=== PATIENT | female | born 1960 ===

== ENCOUNTER 2021-04-19 19:23 | Inpatient (IN) | payer MEDICAID ==
[~2021-04-19] VITALS: Ht 157.5 cm; Wt 99.8 kg
[~2021-04-19 19:23] MED LIST: ASPI-496 PO; CEPH-368 PO; CYCL10TA2 PO; DOCU100T6 PO; GABA300C10 PO; HYDR-2214 PO; HYDR-3237 PO; HYDR25TA6 PO; IBUP-1222 PO; LOSA50TA14 PO; METH-639 PO; METH-640 PO; METH4TAB2 PO; MULT-658 PO; NITR100C56 PO; TRAM50TA2 PO
--- NOTE | 2021-04-19 19:32 | NUR ---
Pt required assistance x 4 to move to [place] [facility], was not ambulatory on scene 2nd to pain. Had epidural 2 days ago, says "its not working" hx chronic back pain has pain mgmt Says she has not contacted her dr for f/u. No new injury. Pt is very sleepy, medics gave her fentenyl states she was sleepy prior to fentenyl but in 10/10 pain. aidet provided.
--- NOTE | 2021-04-19 19:47 | NUR ---
Brittany PINEDA at bedside for evaluation.
[2021-04-19] MEDS ORDERED: SODIUM CHLORIDE 0.9% 1,000 ML IV ONE (20:00)
[2021-04-19] MEDS ORDERED: SODIUM CHLORIDE FLUSH 10ML SYR IVF ONE (20:00)
--- NOTE | 2021-04-19 20:16 | NUR ---
IV started bc x1 set drawn and sent, IVF infusing. Straight cath via sterile technique sent, urine odorous, dark, cloudy. Sent to lab. Labs sourav 2nd set BC. EKG done. will continue monitor.
[2021-04-19 20:22] LABS: BASOPHILS % (AUTO) 1 % (0-1); EOSINOPHILS % (AUTO) 2 % (1-7); LYMPHOCYTES % (AUTO) 17 % (22-44); MEAN CORPUSCULAR HEMOGLOBIN 30.2 pg (27.0-34.8); MEAN CORPUSCULAR HGB CONC 32.8 g/dL (32.4-35.8); MONOCYTES % (AUTO) 7 % (2-9); NEUTROPHILS % (AUTO) 73 % (42-75); PLATELET COUNT 79 x10^3/uL (130-400); RED BLOOD COUNT 4.16 x10^6/uL (3.82-5.3); RED CELL DISTRIBUTION WIDTH 19.3 % (9.6-15.2)
--- NOTE | 2021-04-19 20:25 | NUR ---
B/p trending 92/S, IVF going wide open pt remains very lethargic says she hasn't taken any medications today. Consult with ERP for further orders, agree with poc.
[2021-04-19 20:32] LABS: ALANINE AMINOTRANSFERASE 118 U/L (12-78); ANION GAP 7 mmol/L (5-15); CALCIUM 8.1 mg/dL (8.5-10.1); CHLORIDE 118 mmol/L (98-107); CREATININE 2.59 mg/dL (0.55-1.02)
[2021-04-19 20:34] LABS: MICROSCOPIC INDICATED
[2021-04-19 20:35] LABS: ALKALINE PHOSPHATASE 234 U/L (45-117); BILIRUBIN,TOTAL 4.2 mg/dL (0.2-1.0); TOTAL PROTEIN 5.7 g/dL (6.4-8.2)
[2021-04-19 20:39] LABS: AMPHETAMINE SCREEN, URINE Negative (Negative); BARBITURATE SCREEN, URINE Negative (Negative); BENZODIAZEPINE SCREEN, URINE Negative (Negative); CANNABINOID SCREEN, URINE Negative (Negative); COCAINE SCREEN, URINE Negative (Negative); METHADONE SCREEN, URINE Negative (Negative); OPIATE SCREEN, URINE Positive (Negative)
--- NOTE | 2021-04-19 20:47 | NUR ---
1st Liter going wide open, ifnormed ERP of b/p trend. Pt remains sleepy mentation. Requested lactate/procalcitonin order.
[2021-04-19] MEDS ORDERED: CEFTRIAXONE 1,000 MG in DEXTROSE 5% 50 ML IVPB ONE (21:00)
[2021-04-19] MEDS ORDERED: SODIUM CHLORIDE 0.9% 1,000ML IVBOLUS ONE ×2 (21:00)
--- NOTE | 2021-04-19 21:03 | NUR ---
IVF #2 INFUSING, ABX STARTED. BC HAVE ALREADY BEEN DRAWN. MAP 64
[2021-04-19] MEDS ORDERED: ONDANSETRON 2MG/ML, 2ML ONE (21:11)
--- NOTE | 2021-04-19 21:54 | NUR ---
Waiting for tele admit.
[2021-04-19] MEDS ORDERED: ONDANSETRON 2MG/ML, 2ML IVPush PRN ×2 (22:00→23:00)
[2021-04-19] MEDS ORDERED: METO50TA82 PO (22:01)
[2021-04-19] MEDS ORDERED: RIFA550T4 PO (22:01)
--- NOTE | 2021-04-19 22:13 | NUR ---
ER meds: 2L NS bolus and 1gm rocephin. [facility] lock for transport, with belongings. VSS. Report to tele
--- NOTE | 2021-04-19 22:17 | NUR ---
Hospitalist at bedside, meds updated in computer. Pt says hasn't had any of her meds since wednesday.
[2021-04-19] MEDS ORDERED: HYDR-826 PO (22:24)
[2021-04-19] MEDS ORDERED: GABA300C PO (22:24)
[2021-04-19] MEDS ORDERED: ATOR20TA37 PO (22:24)
[2021-04-19] MEDS ORDERED: DIPH25CA61 PO (22:24)
[2021-04-19] MEDS ORDERED: OMEP-110 PO (22:24)
--- NOTE | 2021-04-19 22:31 | NUR ---
Dr Garcia saw pt in ER. Pt packaged ready to go upstairs. Pt appears more alert now than previously in ER.
[2021-04-19 22:45] VITALS: BP 101/61
[2021-04-19] MEDS ORDERED: CEFTRIAXONE 1,000 MG in DEXTROSE 5% 50 ML IVPB SCH (23:00)
[2021-04-19] MEDS ORDERED: DOCUSATE 100 MG CAPSULE PO PRN (23:00)
[2021-04-20] MEDS: HEPARIN 5,000 UNITS/ML, 1ML SQ SCH ×4 (00:04→23:37)
[2021-04-20 01:40] VITALS: BP 94/57
[2021-04-20] MEDS: HYDROcodone/APAP 5/325 TABLET PO PRN ×2 (03:37→23:38)
[2021-04-20 05:26] LABS: BASOPHILS % (AUTO) 1 % (0-1); EOSINOPHILS % (AUTO) 3 % (1-7); LYMPHOCYTES % (AUTO) 24 % (22-44); MEAN CORPUSCULAR HEMOGLOBIN 30.5 pg (27.0-34.8); MEAN CORPUSCULAR HGB CONC 32.7 g/dL (32.4-35.8); MEAN PLATELET VOLUME 11.4 fL (7.4-10.4); MONOCYTES % (AUTO) 10 % (2-9); NEUTROPHILS % (AUTO) 62 % (42-75); PLATELET COUNT 73 x10^3/uL (130-400); RED BLOOD COUNT 4.15 x10^6/uL (3.82-5.3); RED CELL DISTRIBUTION WIDTH 20.2 % (9.6-15.2)
[2021-04-20 05:36] LABS: CHLORIDE 119 mmol/L (98-107)
[2021-04-20 05:47] LABS: ALANINE AMINOTRANSFERASE 120 U/L (12-78); ALBUMIN 1.9 g/dL (3.4-5.0); ALKALINE PHOSPHATASE 228 U/L (45-117); ANION GAP 8 mmol/L (5-15); BILIRUBIN,TOTAL 4.2 mg/dL (0.2-1.0); CALCIUM 7.7 mg/dL (8.5-10.1); CREATININE 2.88 mg/dL (0.55-1.02); TOTAL PROTEIN 5.4 g/dL (6.4-8.2)
[2021-04-20 07:43] VITALS: BP 106/66
[2021-04-20] MEDS: RIFAXIMIN 550 MG TABLET PO SCH (08:31)
[2021-04-20] MEDS: METOPROLOL TARTRATE 100 MG TAB PO SCH (08:31)
[2021-04-20] MEDS: FUROSEMIDE 20 MG/2 ML IV SCH ×2 (08:32→15:53)
[2021-04-20] MEDS: OMEPRAZOLE 20 MG CAPSULE.DR PO SCH (08:32)
[2021-04-20] MEDS: LOSARTAN 50MG TABLET PO SCH (08:32)
[2021-04-20] MEDS: CYCLOBENZAPRINE 10 MG TABLET PO SCH ×3 (08:32→21:58)
[2021-04-20 13:21] VITALS: BP 113/72
[2021-04-20] MEDS: SODIUM CHLORIDE 0.9% 1,000 ML IV SCH (15:53)
[2021-04-20 19:19] VITALS: BP 118/78
[2021-04-20] MEDS: CEFTRIAXONE 2,000 MG in DEXTROSE 5% 50 ML IVPB SCH (21:58)
[2021-04-20] MEDS: LACTULOSE 10 GM/15 ML UDC PO SCH (21:58)
[2021-04-21] MEDS: SODIUM CHLORIDE 0.9% 1,000 ML IV SCH ×2 (01:03→10:45)
[2021-04-21] MEDS: HYDROcodone/APAP 5/325 TABLET PO PRN (01:04)
[2021-04-21 01:27] VITALS: BP 124/86
[2021-04-21 07:38] VITALS: BP 102/64
[2021-04-21] MEDS: FUROSEMIDE 20 MG/2 ML IV SCH ×2 (08:12→17:01)
[2021-04-21] MEDS: METOPROLOL TARTRATE 100 MG TAB PO SCH (08:12)
[2021-04-21] MEDS: HEPARIN 5,000 UNITS/ML, 1ML SQ SCH ×3 (08:12→23:56)
[2021-04-21] MEDS: LACTULOSE 10 GM/15 ML UDC PO SCH ×2 (08:12→21:01)
[2021-04-21] MEDS: RIFAXIMIN 550 MG TABLET PO SCH (08:12)
[2021-04-21] MEDS: LOSARTAN 50MG TABLET PO SCH (08:13)
[2021-04-21] MEDS: CYCLOBENZAPRINE 10 MG TABLET PO SCH ×3 (08:13→21:01)
[2021-04-21] MEDS: OMEPRAZOLE 20 MG CAPSULE.DR PO SCH (08:13)
[2021-04-21] MEDS ORDERED: MORPHINE SULFATE 4 MG/ML, 1ML IV ONE (08:30)
[2021-04-21 08:31] LABS: BASOPHILS % (AUTO) 1 % (0-1); EOSINOPHILS % (AUTO) 2 % (1-7); LYMPHOCYTES % (AUTO) 25 % (22-44); MEAN CORPUSCULAR HEMOGLOBIN 30.5 pg (27.0-34.8); MEAN CORPUSCULAR HGB CONC 33.1 g/dL (32.4-35.8); MEAN PLATELET VOLUME 10.6 fL (7.4-10.4); MONOCYTES % (AUTO) 12 % (2-9); NEUTROPHILS % (AUTO) 61 % (42-75); PLATELET COUNT 66 x10^3/uL (130-400); RED BLOOD COUNT 3.88 x10^6/uL (3.82-5.3); RED CELL DISTRIBUTION WIDTH 20.3 % (9.6-15.2)
[2021-04-21 08:36] LABS: CALCIUM 7.4 mg/dL (8.5-10.1); CHLORIDE 118 mmol/L (98-107)
[2021-04-21 08:41] LABS: ALANINE AMINOTRANSFERASE 138 U/L (12-78); ALBUMIN 1.8 g/dL (3.4-5.0); ALKALINE PHOSPHATASE 233 U/L (45-117); ANION GAP 9 mmol/L (5-15); BILIRUBIN,TOTAL 4.9 mg/dL (0.2-1.0); CREATININE 4.19 mg/dL (0.55-1.02); TOTAL PROTEIN 5.5 g/dL (6.4-8.2)
[2021-04-21] MEDS ORDERED: SODIUM CHLORIDE 0.9%, 500ML IVBOLUS ONE (11:30)
[2021-04-21 13:00] VITALS: BP 120/74
[2021-04-21 14:31] VITALS: BP 105/56
[2021-04-21] MEDS: ALBUMIN HUMAN 25% 200 ML IV SCH (14:54)
[2021-04-21] MEDS ORDERED: MORPHINE SULFATE 4 MG/ML, 1ML IVPush ONE (15:00)
[2021-04-21 16:11] LABS: TROPONIN I 0.109 ng/mL (0.000-0.045)
[2021-04-21 20:06] VITALS: BP 102/59
[2021-04-21] MEDS: CEFTRIAXONE 2,000 MG in DEXTROSE 5% 50 ML IVPB SCH (22:22)
[2021-04-22 00:17] LABS: TROPONIN I 0.106 ng/mL (0.000-0.045)
[2021-04-22 02:13] VITALS: BP 110/64
[2021-04-22] MEDS: ALBUMIN HUMAN 25% 200 ML IV SCH ×2 (02:18→14:13)
[2021-04-22] MEDS: SODIUM CHLORIDE 0.9% 1,000 ML IV SCH (02:18)
[2021-04-22 05:34] LABS: TROPONIN I 0.084 ng/mL (0.000-0.045)
[2021-04-22 07:03] VITALS: BP 121/79
[2021-04-22 07:33] LABS: BASOPHILS % (AUTO) 1 % (0-1); EOSINOPHILS % (AUTO) 2 % (1-7); LYMPHOCYTES % (AUTO) 13 % (22-44); MEAN CORPUSCULAR HEMOGLOBIN 30.8 pg (27.0-34.8); MEAN CORPUSCULAR HGB CONC 33.3 g/dL (32.4-35.8); MEAN PLATELET VOLUME 11.3 fL (7.4-10.4); MONOCYTES % (AUTO) 12 % (2-9); NEUTROPHILS % (AUTO) 73 % (42-75); RED BLOOD COUNT 3.33 x10^6/uL (3.82-5.3); RED CELL DISTRIBUTION WIDTH 20.2 % (9.6-15.2)
[2021-04-22 07:37] LABS: ALANINE AMINOTRANSFERASE 140 U/L (12-78); ALBUMIN 2.7 g/dL (3.4-5.0); ANION GAP 11 mmol/L (5-15); CALCIUM 6.8 mg/dL (8.5-10.1); CHLORIDE 120 mmol/L (98-107)
[2021-04-22 07:39] LABS: CREATININE 4.14 mg/dL (0.55-1.02)
[2021-04-22 07:40] LABS: ALKALINE PHOSPHATASE 192 U/L (45-117); BILIRUBIN,TOTAL 5.3 mg/dL (0.2-1.0); TOTAL PROTEIN 5.8 g/dL (6.4-8.2)
[2021-04-22 08:06] LABS: PLATELET COUNT 56 x10^3/uL (130-400)
[2021-04-22 08:09] LABS: ANISOCYTOSIS 2+; ECHINOCYTES 1+; OVALOCYTES 1+
[2021-04-22 08:10] LABS: <PLATELET ESTIMATE> DECREASED; LARGE PLATELETS 1+
[2021-04-22 08:12] VITALS: BP 106/70
[2021-04-22] MEDS: RIFAXIMIN 550 MG TABLET PO SCH (08:13)
[2021-04-22] MEDS: HEPARIN 5,000 UNITS/ML, 1ML SQ SCH ×3 (08:13→23:49)
[2021-04-22] MEDS: METOPROLOL TARTRATE 100 MG TAB PO SCH (08:13)
[2021-04-22] MEDS: OMEPRAZOLE 20 MG CAPSULE.DR PO SCH (08:13)
[2021-04-22] MEDS: CYCLOBENZAPRINE 10 MG TABLET PO SCH ×3 (08:13→20:27)
[2021-04-22] MEDS: FUROSEMIDE 20 MG/2 ML IV SCH (08:14)
[2021-04-22] MEDS: LACTULOSE 10 GM/15 ML UDC PO SCH ×3 (08:14→20:27)
[2021-04-22 10:30] LABS: INTERNATIONAL NORMALIZED RATIO 1.55 (0.93-1.1); PROTHROMBIN TIME 16.2 Seconds (9.6-11.5)
[2021-04-22] MEDS: SODIUM BICARBONATE 650 MG TABLET PO SCH ×2 (11:49→20:27)
[2021-04-22] MEDS ORDERED: LACTULOSE 20 GM/30 ML UDC PO SCH (13:00)
[2021-04-22 13:15] VITALS: BP 113/62
[2021-04-22] MEDS ORDERED: LACTULOSE 3.3 GM/5 ML ORAL.SOL RC ONE (14:00)
[2021-04-22] MEDS: METRONIDAZOLE PMX 500MG/100ML 100 ML IV SCH ×2 (15:33→22:46)
[2021-04-22 19:02] VITALS: BP 131/80
[2021-04-22] MEDS: CEFTRIAXONE 2,000 MG in DEXTROSE 5% 50 ML IVPB SCH (22:02)
[2021-04-23] MEDS ORDERED: SUCCINYLCHOLINE 20 MG/ML, 10ML ONE
[2021-04-23] MEDS ORDERED: PROPOFOL 10 MG/ML, 100ML IV ONE
[2021-04-23] MEDS ORDERED: ETOMIDATE 40 MG/20 ML ONE
[2021-04-23 00:10] VITALS: BP 116/77
[2021-04-23] MEDS: ALBUMIN HUMAN 25% 200 ML IV SCH (01:42)
[2021-04-23 06:06] LABS: BASOPHILS % (AUTO) 0 % (0-1); EOSINOPHILS % (AUTO) 1 % (1-7); LYMPHOCYTES % (AUTO) 8 % (22-44); MEAN CORPUSCULAR HEMOGLOBIN 30.5 pg (27.0-34.8); MEAN CORPUSCULAR HGB CONC 32.7 g/dL (32.4-35.8); MONOCYTES % (AUTO) 9 % (2-9); NEUTROPHILS % (AUTO) 81 % (42-75); PLATELET COUNT 59 x10^3/uL (130-400); RED BLOOD COUNT 3.87 x10^6/uL (3.82-5.3); RED CELL DISTRIBUTION WIDTH 20.9 % (9.6-15.2)
[2021-04-23 06:10] LABS: ALANINE AMINOTRANSFERASE 228 U/L (12-78); ALBUMIN 3.4 g/dL (3.4-5.0); ANION GAP 14 mmol/L (5-15); CALCIUM 7.4 mg/dL (8.5-10.1); CHLORIDE 118 mmol/L (98-107)
[2021-04-23 06:13] LABS: ALKALINE PHOSPHATASE 210 U/L (45-117); BILIRUBIN,TOTAL 7.2 mg/dL (0.2-1.0); CREATININE 4.31 mg/dL (0.55-1.02); TOTAL PROTEIN 6.7 g/dL (6.4-8.2)
[2021-04-23] MEDS: METRONIDAZOLE PMX 500MG/100ML 100 ML IV SCH (06:18)
[2021-04-23 06:49] VITALS: BP 138/85
[2021-04-23] MEDS: SODIUM BICARBONATE 650 MG TABLET PO SCH ×4 (08:45→21:50)
[2021-04-23] MEDS: CYCLOBENZAPRINE 10 MG TABLET PO SCH (08:45)
[2021-04-23] MEDS: METOPROLOL TARTRATE 100 MG TAB PO SCH (08:45)
[2021-04-23] MEDS: RIFAXIMIN 550 MG TABLET PO SCH (08:45)
[2021-04-23] MEDS: OMEPRAZOLE 20 MG CAPSULE.DR PO SCH (08:45)
[2021-04-23] MEDS: LACTULOSE 10 GM/15 ML UDC PO SCH ×3 (08:46→21:50)
[2021-04-23] MEDS: HEPARIN 5,000 UNITS/ML, 1ML SQ SCH ×3 (08:46→21:52)
[2021-04-23] MEDS: SODIUM BICARBONATE 8.4% 150 MEQ in DEXTROSE 5% 1,000 ML IV SCH ×3 (11:36→21:58)
[2021-04-23] MEDS: ALBUMIN HUMAN 25% 100 ML IV SCH ×3 (11:37→18:13)
[2021-04-23 12:51] VITALS: BP 88/58
[2021-04-23 12:55] VITALS: BP 88/58
[2021-04-23] MEDS ORDERED: ALBUMIN HUMAN 25% 100 ML IV SCH (13:00)
[2021-04-23] MEDS ORDERED: LACTULOSE 3.3 GM/5 ML ORAL.SOL RC ONE (13:00)
[2021-04-23] MEDS ORDERED: OCTREOTIDE 1,250 MCG in SODIUM CHLORIDE 0.9% 247.5 ML IV SCH (13:00)
[2021-04-23] MEDS ORDERED: MIDODRINE 5 MG TABLET PO SCH (13:00)
[2021-04-23 13:03] VITALS: BP 70/42
[2021-04-23] MEDS: NOREPINEPHRINE 8 MG in SODIUM CHLORIDE 0.9% 242 ML IV PRN ×2 (15:22→20:05)
[2021-04-23] MEDS: MIDODRINE 5 MG TABLET PO SCH ×3 (15:23→21:51)
[2021-04-23 15:46] LABS: ALANINE AMINOTRANSFERASE 216 U/L (12-78); ANION GAP 17 mmol/L (5-15); CALCIUM 6.7 mg/dL (8.5-10.1); CHLORIDE 115 mmol/L (98-107); PLATELET (DIC) 68 x10^3/uL (130-400)
[2021-04-23 15:47] LABS: INTERNATIONAL NORMALIZED RATIO 1.81 (0.93-1.1); PROTHROMBIN TIME 18.8 Seconds (9.6-11.5)
[2021-04-23 15:48] LABS: ALKALINE PHOSPHATASE 177 U/L (45-117); BILIRUBIN,TOTAL 6.6 mg/dL (0.2-1.0); TOTAL PROTEIN 6.8 g/dL (6.4-8.2)
[2021-04-23] MEDS ORDERED: PHARMACY MAY ADJ FOR RENAL FX MC SCH (16:00)
[2021-04-23] MEDS ORDERED: LIDOCAINE-MPF 1%, 2ML ENDO PRN (16:00)
[2021-04-23 16:06] LABS: D-DIMER (DIC) 2.18 ug/mlFEU (0.00-0.52); FIBRINOGEN 286 mg/dL (200-340); PROTIME 18.4 Seconds (9.6-11.5)
[2021-04-23] MEDS: MEROPENEM 500 MG in SODIUM CHLORIDE 0.9% 100 ML IV SCH (16:08)
[2021-04-23 16:10] LABS: PTT > 95 Seconds (25-31)
[2021-04-23] MEDS ORDERED: SODIUM BICARB 8.4%, 50ML SYRINGE IVPush ONE (16:30)
[2021-04-23] MEDS ORDERED: LIDOCAINE-MPF 1%, 5ML ONE (16:32)
[2021-04-23] MEDS ORDERED: CALCIUM GLUCONATE 9.2 MEQ in SODIUM CHLORIDE 0.9% 100 ML IV ONE (17:00)
[2021-04-23] MEDS: PROPOFOL 100 ML IV PRN (18:12)
[2021-04-23] MEDS ORDERED: PHYTONADIONE 10 MG in SODIUM CHLORIDE 0.9% 50 ML IV ONE (19:30)
[2021-04-24] MEDS: MEROPENEM 500 MG in SODIUM CHLORIDE 0.9% 100 ML IV SCH ×2 (01:48→13:45)
[2021-04-24] MEDS: ALBUMIN HUMAN 25% 100 ML IV SCH (01:48)
[2021-04-24] MEDS: PROPOFOL 100 ML IV PRN ×2 (02:42→05:06)
[2021-04-24] MEDS: NOREPINEPHRINE 8 MG in SODIUM CHLORIDE 0.9% 242 ML IV PRN ×3 (03:59→19:54)
[2021-04-24 04:42] LABS: MEAN CORPUSCULAR HEMOGLOBIN 30.9 pg (27.0-34.8); PLATELET COUNT 52 x10^3/uL (130-400); RED BLOOD COUNT 3.12 x10^6/uL (3.82-5.3); RED CELL DISTRIBUTION WIDTH 20.6 % (9.6-15.2)
[2021-04-24 04:54] LABS: INTERNATIONAL NORMALIZED RATIO 2.23 (0.93-1.1)
[2021-04-24 04:55] LABS: ALANINE AMINOTRANSFERASE 232 U/L (12-78); ALBUMIN 3.8 g/dL (3.4-5.0); ANION GAP 18 mmol/L (5-15); BILIRUBIN, DIRECT 4.6 mg/dL (0.1-0.2); CHLORIDE 113 mmol/L (98-107); CREATININE 4.78 mg/dL (0.55-1.02)
[2021-04-24 04:57] LABS: ALKALINE PHOSPHATASE 157 U/L (45-117); BILIRUBIN,TOTAL 6.7 mg/dL (0.2-1.0); TOTAL PROTEIN 6.2 g/dL (6.4-8.2)
[2021-04-24] MEDS: HEPARIN 5,000 UNITS/ML, 1ML SQ SCH (05:01)
[2021-04-24 05:04] LABS: CALCIUM 5.7 mg/dL (8.5-10.1)
[2021-04-24] MEDS ORDERED: CALCIUM GLUCONATE 4.6 MEQ/10 ML INJ ONE (05:30)
[2021-04-24 05:41] LABS: BILIRUBIN,INDIRECT 2.1 mg/dL (0.0-2.0)
[2021-04-24 05:43] LABS: BAND#(MANUAL) 1.33 x10^3/uL; BANDS%(MANUAL) 13 % (0-7); EOS% (MANUAL) 1 % (1-7); LYMPH#(MANUAL) 1.33 x10^3/uL (1-3.4); LYMPHS% (MANUAL) 13 % (22-44); MONOS#(MANUAL) 0.71 x10^3/uL (0.3-2.7); MONOS% (MANUAL) 7 % (2-9); SEG#(MANUAL) 6.73 x10^3/uL (1.8-6.8); SEGS% (MANUAL) 66 % (42-75)
[2021-04-24 05:44] LABS: <PLATELET ESTIMATE> DECREASED; ANISOCYTOSIS 1+; LARGE PLATELETS 1+; OVALOCYTES 1+
[2021-04-24 05:45] LABS: POLYCHROMASIA 1+
[2021-04-24] MEDS: MIDAZOLAM HCL 50 MG in SODIUM CHLORIDE 0.9% 40 ML IV PRN ×2 (05:51→23:16)
[2021-04-24] MEDS ORDERED: POTASSIUM CHLORIDE PMX 100 ML IV ONE (07:00)
[2021-04-24] MEDS ORDERED: POTASSIUM CHLORIDE 20 MEQ PACKET PO ONE (07:00)
[2021-04-24] MEDS: SODIUM BICARBONATE 650 MG TABLET PO SCH ×3 (09:00→20:00)
[2021-04-24] MEDS: RIFAXIMIN 550 MG TABLET PO SCH (09:12)
[2021-04-24] MEDS: LACTULOSE 10 GM/15 ML UDC PO SCH ×3 (09:12→20:00)
[2021-04-24] MEDS: PANTOPRAZOLE 40 MG IV IVPush SCH (09:12)
[2021-04-24] MEDS: MIDODRINE 5 MG TABLET PO SCH ×3 (09:13→20:01)
[2021-04-24] MEDS: SODIUM BICARBONATE 8.4% 150 MEQ in DEXTROSE 5% 1,000 ML IV SCH ×3 (09:59→23:17)
[2021-04-24] MEDS ORDERED: PHYTONADIONE 10 MG in SODIUM CHLORIDE 0.9% 50 ML IV ONE (10:00)
--- NOTE | 2021-04-24 14:13 | NUR ---
TUBE FEED:.Vital AF, GOAL: ON propofol: 35 ml/hr, OFF propofol: 45 ml/hr. Recommend start with trickle feeds,advance slowly by 10 ml/hr if tolerates trickle feeds. Addendum: 04/24/21 at [address] Amended: Links added.
[2021-04-25] MEDS: MEROPENEM 500 MG in SODIUM CHLORIDE 0.9% 100 ML IV SCH ×2 (01:26→14:32)
[2021-04-25] MEDS: NOREPINEPHRINE 8 MG in SODIUM CHLORIDE 0.9% 242 ML IV PRN ×2 (04:18→19:37)
[2021-04-25 04:34] LABS: MEAN CORPUSCULAR HEMOGLOBIN 30.9 pg (27.0-34.8); MEAN CORPUSCULAR HGB CONC 34.1 g/dL (32.4-35.8); MEAN PLATELET VOLUME 10.8 fL (7.4-10.4); RED BLOOD COUNT 2.92 x10^6/uL (3.82-5.3); RED CELL DISTRIBUTION WIDTH 20.7 % (9.6-15.2)
[2021-04-25 04:43] LABS: INTERNATIONAL NORMALIZED RATIO 1.78 (0.93-1.1); PROTHROMBIN TIME 18.5 Seconds (9.6-11.5)
[2021-04-25 04:49] LABS: ALKALINE PHOSPHATASE 137 U/L (45-117); BILIRUBIN,TOTAL 6.3 mg/dL (0.2-1.0)
[2021-04-25 05:01] LABS: ALANINE AMINOTRANSFERASE 290 U/L (12-78); ANION GAP 15 mmol/L (5-15); BILIRUBIN, DIRECT 4.5 mg/dL (0.1-0.2); BILIRUBIN,INDIRECT 1.8 mg/dL (0.0-2.0); CALCIUM 5.4 mg/dL (8.5-10.1); CHLORIDE 111 mmol/L (98-107); CREATININE 5.47 mg/dL (0.55-1.02)
[2021-04-25 05:02] LABS: ALBUMIN 2.8 g/dL (3.4-5.0)
[2021-04-25 05:08] LABS: PLATELET COUNT 50 x10^3/uL (130-400)
[2021-04-25 05:14] LABS: ANISOCYTOSIS 1+; BAND#(MANUAL) 1.41 x10^3/uL; BANDS%(MANUAL) 17 % (0-7); EOS#(MANUAL) 0.25 x10^3/uL (0.0-0.4); EOS% (MANUAL) 3 % (1-7); LYMPH#(MANUAL) 1.08 x10^3/uL (1-3.4); LYMPHS% (MANUAL) 13 % (22-44); METAMYELOCYTES# (MANUAL) 0.25 x10^3/uL (0-0); METAMYELOCYTES% (MANUAL) 3 % (0-1); MONOS#(MANUAL) 0.58 x10^3/uL (0.3-2.7); MONOS% (MANUAL) 7 % (2-9); POLYCHROMASIA 1+; SEG#(MANUAL) 4.73 x10^3/uL (1.8-6.8); SEGS% (MANUAL) 57 % (42-75)
[2021-04-25 05:15] LABS: OVALOCYTES 1+
[2021-04-25 05:16] LABS: <PLATELET ESTIMATE> DECREASED
[2021-04-25 05:17] LABS: LARGE PLATELETS 1+
[2021-04-25] MEDS ORDERED: POTASSIUM CHLORIDE 20 MEQ TAB.ER.PRT NG ONE (05:30)
[2021-04-25] MEDS ORDERED: POTASSIUM CHLORIDE 40 MEQ in SODIUM CHLORIDE 0.9% 100 ML IV ONE (05:30)
[2021-04-25] MEDS ORDERED: CALCIUM GLUCONATE 9.2 MEQ in SODIUM CHLORIDE 0.9% 100 ML IV ONE (06:30)
[2021-04-25] MEDS: PANTOPRAZOLE 40 MG IV IVPush SCH (08:45)
[2021-04-25] MEDS: SODIUM BICARBONATE 650 MG TABLET PO SCH (08:45)
[2021-04-25] MEDS: RIFAXIMIN 550 MG TABLET PO SCH (08:45)
[2021-04-25] MEDS: LACTULOSE 10 GM/15 ML UDC PO SCH ×3 (08:45→20:16)
[2021-04-25] MEDS: MIDODRINE 5 MG TABLET PO SCH ×3 (08:46→20:17)
[2021-04-25] MEDS ORDERED: ALBUMIN HUMAN 25% 300 ML ONE (16:05)
[2021-04-25] MEDS: ALBUMIN HUMAN 25% 100 ML IV PRN ×3 (16:38→17:14)
[2021-04-25] MEDS: FENTANYL PF 100 MCG/2ML IVPush PRN ×2 (20:18→22:51)
[2021-04-26] MEDS: MEROPENEM 500 MG in SODIUM CHLORIDE 0.9% 100 ML IV SCH ×2 (02:23→13:45)
[2021-04-26] MEDS: NOREPINEPHRINE 8 MG in SODIUM CHLORIDE 0.9% 242 ML IV PRN (03:34)
[2021-04-26 04:57] LABS: ANION GAP 12 mmol/L (5-15); CALCIUM 8.1 mg/dL (8.5-10.1); CHLORIDE 107 mmol/L (98-107); CREATININE 4.79 mg/dL (0.55-1.02)
[2021-04-26 05:02] LABS: TRIGLYCERIDES 101 mg/dL (50-200)
[2021-04-26 05:07] LABS: MEAN CORPUSCULAR HEMOGLOBIN 30.4 pg (27.0-34.8); MEAN CORPUSCULAR HGB CONC 33.6 g/dL (32.4-35.8); MEAN PLATELET VOLUME 10.7 fL (7.4-10.4); RED BLOOD COUNT 2.86 x10^6/uL (3.82-5.3); RED CELL DISTRIBUTION WIDTH 20.8 % (9.6-15.2)
[2021-04-26 05:46] LABS: PLATELET COUNT 31 x10^3/uL (130-400)
[2021-04-26 05:53] LABS: <PLATELET ESTIMATE> DECREASED; ANISOCYTOSIS 1+; BASOS#(MANUAL) 0.12 x10^3/uL (0-0.1); BASOS% (MANUAL) 1 % (0-1); EOS#(MANUAL) 0.24 x10^3/uL (0.0-0.4); EOS% (MANUAL) 2 % (1-7); LYMPH#(MANUAL) 1.65 x10^3/uL (1-3.4); LYMPHS% (MANUAL) 14 % (22-44); MONOS#(MANUAL) 0.47 x10^3/uL (0.3-2.7); MONOS% (MANUAL) 4 % (2-9); OVALOCYTES 1+; POLYCHROMASIA 1+; SEG#(MANUAL) 9.32 x10^3/uL (1.8-6.8); SEGS% (MANUAL) 79 % (42-75)
[2021-04-26 05:54] LABS: LARGE PLATELETS 1+
[2021-04-26] MEDS: PANTOPRAZOLE 40 MG IV IVPush SCH (09:17)
[2021-04-26] MEDS: RIFAXIMIN 550 MG TABLET PO SCH (09:18)
[2021-04-26] MEDS: LACTULOSE 10 GM/15 ML UDC PO SCH (09:18)
[2021-04-26] MEDS: MIDODRINE 5 MG TABLET PO SCH ×3 (09:18→21:13)
[2021-04-26] MEDS: ALBUMIN HUMAN 25% 100 ML IV PRN ×2 (09:54→10:34)
[2021-04-26] MEDS: NOREPINEPHRINE 32 MG in SODIUM CHLORIDE 0.9% 218 ML IV PRN (14:45)
[2021-04-26] MEDS: FENTANYL PF 100 MCG/2ML IVPush PRN ×2 (19:46→23:44)
[2021-04-27] MEDS: MEROPENEM 500 MG in SODIUM CHLORIDE 0.9% 100 ML IV SCH ×2 (01:42→14:00)
[2021-04-27] MEDS: NOREPINEPHRINE 32 MG in SODIUM CHLORIDE 0.9% 218 ML IV PRN (03:40)
[2021-04-27 03:45] LABS: BASOPHILS % (AUTO) 0 % (0-1); EOSINOPHILS % (AUTO) 4 % (1-7); LYMPHOCYTES % (AUTO) 9 % (22-44); MEAN CORPUSCULAR HEMOGLOBIN 30.7 pg (27.0-34.8); MEAN CORPUSCULAR HGB CONC 33.5 g/dL (32.4-35.8); MEAN PLATELET VOLUME 10.8 fL (7.4-10.4); MONOCYTES % (AUTO) 13 % (2-9); NEUTROPHILS % (AUTO) 74 % (42-75); RED BLOOD COUNT 2.77 x10^6/uL (3.82-5.3); RED CELL DISTRIBUTION WIDTH 21.2 % (9.6-15.2)
[2021-04-27 03:47] LABS: PLATELET COUNT 36 x10^3/uL (130-400)
[2021-04-27 03:57] LABS: ANION GAP 11 mmol/L (5-15); CALCIUM 8.7 mg/dL (8.5-10.1); CHLORIDE 100 mmol/L (98-107); CREATININE 3.95 mg/dL (0.55-1.02)
[2021-04-27] MEDS: FENTANYL PF 100 MCG/2ML IVPush PRN ×4 (03:57→23:08)
[2021-04-27] MEDS: PANTOPRAZOLE 40 MG IV IVPush SCH (08:46)
[2021-04-27] MEDS: RIFAXIMIN 550 MG TABLET PO SCH (08:46)
[2021-04-27] MEDS: LACTULOSE 10 GM/15 ML UDC PO SCH (08:47)
[2021-04-27] MEDS: MIDODRINE 5 MG TABLET PO SCH ×3 (08:47→21:21)
[2021-04-27] MEDS ORDERED: NOREPINEPHRINE 32 MG in SODIUM CHLORIDE 0.9% 218 ML IV PRN (13:30)
[2021-04-27] MEDS ORDERED: DEXTROSE 50%, 50ML SYRINGE IVPush PRN (16:30)
[2021-04-27] MEDS: MIDAZOLAM 1 MG/ML, 2ML IVPush PRN ×3 (17:43→23:07)
[2021-04-28] MEDS: MEROPENEM 500 MG in SODIUM CHLORIDE 0.9% 100 ML IV SCH ×2 (01:57→13:41)
[2021-04-28 03:49] LABS: MEAN CORPUSCULAR HEMOGLOBIN 31.2 pg (27.0-34.8); MEAN CORPUSCULAR HGB CONC 33.6 g/dL (32.4-35.8); MEAN PLATELET VOLUME 10.5 fL (7.4-10.4); RED BLOOD COUNT 2.84 x10^6/uL (3.82-5.3); RED CELL DISTRIBUTION WIDTH 22.4 % (9.6-15.2)
[2021-04-28] MEDS: MIDAZOLAM 1 MG/ML, 2ML IVPush PRN (03:58)
[2021-04-28] MEDS: FENTANYL PF 100 MCG/2ML IVPush PRN ×2 (03:58→15:37)
[2021-04-28 04:01] LABS: ALANINE AMINOTRANSFERASE 489 U/L (12-78); ALBUMIN 2.9 g/dL (3.4-5.0); ANION GAP 12 mmol/L (5-15); CALCIUM 8.1 mg/dL (8.5-10.1); CHLORIDE 96 mmol/L (98-107); CREATININE 3.43 mg/dL (0.55-1.02); INTERNATIONAL NORMALIZED RATIO 1.93 (0.93-1.1)
[2021-04-28 04:08] LABS: ALKALINE PHOSPHATASE 183 U/L (45-117); BILIRUBIN,INDIRECT 5.2 mg/dL (0.0-2.0); BILIRUBIN,TOTAL 13.2 mg/dL (0.2-1.0)
[2021-04-28 04:27] LABS: PLATELET COUNT 37 x10^3/uL (130-400)
[2021-04-28 04:37] LABS: ANISOCYTOSIS 1+; BASOS#(MANUAL) 0.21 x10^3/uL (0-0.1); BASOS% (MANUAL) 1 % (0-1); LYMPH#(MANUAL) 1.47 x10^3/uL (1-3.4); LYMPHS% (MANUAL) 7 % (22-44); MONOS#(MANUAL) 1.68 x10^3/uL (0.3-2.7); MONOS% (MANUAL) 8 % (2-9); MYELOCYTES# (MANUAL) 0.21 x10^3/uL (0-0); MYELOCYTES% (MANUAL) 1 % (0-0); SEG#(MANUAL) 17.43 x10^3/uL (1.8-6.8); SEGS% (MANUAL) 83 % (42-75)
[2021-04-28 04:38] LABS: <PLATELET ESTIMATE> DECREASED; LARGE PLATELETS 1+; OVALOCYTES 1+
[2021-04-28] MEDS ORDERED: VANCOMYCIN PER PHARMACY MC PRN (07:00)
[2021-04-28] MEDS ORDERED: VANCOMYCIN 1,500 MG in SODIUM CHLORIDE 0.9% 250 ML IV ONE (08:30)
[2021-04-28] MEDS: MIDODRINE 5 MG TABLET PO SCH ×3 (09:41→20:33)
[2021-04-28] MEDS: PANTOPRAZOLE 40 MG IV IVPush SCH (09:41)
[2021-04-28] MEDS: RIFAXIMIN 550 MG TABLET PO SCH (09:41)
[2021-04-28] MEDS: LACTULOSE 10 GM/15 ML UDC PO SCH (09:41)
[2021-04-28] MEDS ORDERED: PHARMACOKINETIC MONITORING MC PRN (12:30)
[2021-04-28] MEDS ORDERED: PHARMACOKINETIC CONSULTATION MC ONE (12:30)
[2021-04-28 15:17] LABS: ALANINE AMINOTRANSFERASE 609 U/L (12-78); ALBUMIN 2.9 g/dL (3.4-5.0); ANION GAP 13 mmol/L (5-15); CALCIUM 8.2 mg/dL (8.5-10.1); CHLORIDE 99 mmol/L (98-107)
[2021-04-28 15:19] LABS: ALKALINE PHOSPHATASE 250 U/L (45-117); TOTAL PROTEIN 5.4 g/dL (6.4-8.2)
[2021-04-28 15:32] LABS: BILIRUBIN,TOTAL 16.5 mg/dL (0.2-1.0)
[2021-04-29] MEDS: MEROPENEM 500 MG in SODIUM CHLORIDE 0.9% 100 ML IV SCH (01:33)
[2021-04-29 04:03] LABS: MEAN CORPUSCULAR HGB CONC 32.4 g/dL (32.4-35.8); MEAN PLATELET VOLUME 11.1 fL (7.4-10.4); PLATELET COUNT 61 x10^3/uL (130-400); RED BLOOD COUNT 3.02 x10^6/uL (3.82-5.3); RED CELL DISTRIBUTION WIDTH 22.1 % (9.6-15.2)
[2021-04-29 04:14] LABS: INTERNATIONAL NORMALIZED RATIO 1.95 (0.93-1.1); PROTHROMBIN TIME 20.2 Seconds (9.6-11.5)
[2021-04-29 04:16] LABS: ALANINE AMINOTRANSFERASE 618 U/L (12-78); ALBUMIN 2.6 g/dL (3.4-5.0); ANION GAP 14 mmol/L (5-15); CALCIUM 7.5 mg/dL (8.5-10.1); CHLORIDE 97 mmol/L (98-107); CREATININE 3.09 mg/dL (0.55-1.02)
[2021-04-29 04:19] LABS: BAND#(MANUAL) 1.66 x10^3/uL; BANDS%(MANUAL) 5 % (0-7); LYMPH#(MANUAL) 2.66 x10^3/uL (1-3.4); LYMPHS% (MANUAL) 8 % (22-44); METAMYELOCYTES# (MANUAL) 0.33 x10^3/uL (0-0); METAMYELOCYTES% (MANUAL) 1 % (0-1); MONOS#(MANUAL) 1.99 x10^3/uL (0.3-2.7); MONOS% (MANUAL) 6 % (2-9); SEG#(MANUAL) 26.56 x10^3/uL (1.8-6.8); SEGS% (MANUAL) 80 % (42-75)
[2021-04-29 04:20] LABS: ANISOCYTOSIS 1+; OVALOCYTES 1+; POLYCHROMASIA 1+
[2021-04-29 04:21] LABS: <PLATELET ESTIMATE> DECREASED; LARGE PLATELETS 1+; PMNS WITH VACUOLES 1+
[2021-04-29 04:23] LABS: ALKALINE PHOSPHATASE 248 U/L (45-117); TOTAL PROTEIN 4.9 g/dL (6.4-8.2)
[2021-04-29 04:25] LABS: BILIRUBIN,TOTAL 16.9 mg/dL (0.2-1.0)
[2021-04-29] MEDS: MIDODRINE 5 MG TABLET PO SCH (08:32)
[2021-04-29] MEDS: RIFAXIMIN 550 MG TABLET PO SCH (08:32)
[2021-04-29] MEDS: PANTOPRAZOLE 40 MG IV IVPush SCH (08:32)
[2021-04-29] MEDS: LACTULOSE 10 GM/15 ML UDC PO SCH (08:33)
[2021-04-29 11:20] LABS: MEAN CORPUSCULAR HEMOGLOBIN 30.9 pg (27.0-34.8); MEAN CORPUSCULAR HGB CONC 32.2 g/dL (32.4-35.8); MEAN PLATELET VOLUME 11.1 fL (7.4-10.4); PLATELET COUNT 66 x10^3/uL (130-400); RED BLOOD COUNT 2.96 x10^6/uL (3.82-5.3); RED CELL DISTRIBUTION WIDTH 22.9 % (9.6-15.2)
[2021-04-29] MEDS: ALBUMIN HUMAN 25% 100 ML IV PRN ×2 (11:42→11:43)
[2021-04-29 12:17] LABS: ANISOCYTOSIS 1+; BAND#(MANUAL) 2.01 x10^3/uL; BANDS%(MANUAL) 5 % (0-7); LYMPH#(MANUAL) 3.62 x10^3/uL (1-3.4); LYMPHS% (MANUAL) 9 % (22-44); MONOS#(MANUAL) 4.82 x10^3/uL (0.3-2.7); MONOS% (MANUAL) 12 % (2-9); MYELOCYTES% (MANUAL) 1 % (0-0); SEG#(MANUAL) 29.35 x10^3/uL (1.8-6.8); SEGS% (MANUAL) 73 % (42-75)
[2021-04-29 12:18] LABS: <PLATELET ESTIMATE> DECREASED; LARGE PLATELETS 1+; POLYCHROMASIA 1+
[2021-04-29] MEDS ORDERED: SCOPOLAMINE 1MG PATCH TD PRN (14:30)
[2021-04-29] MEDS ORDERED: MORPHINE 30MG/30ML PCA.SYR IV PRN (14:30)
[2021-04-29] MEDS ORDERED: MORPHINE SULFATE 4 MG/ML, 1ML IV ONE (14:30)
[2021-04-29] MEDS ORDERED: LORazepam 2 MG/ML, 1ML IV ONE (14:30)
[2021-04-29] MEDS ORDERED: ONDANSETRON 2MG/ML, 2ML IVPush PRN (14:30)
[2021-04-29] MEDS ORDERED: LORazepam 2 MG/ML, 1ML IVPush PRN (14:30)
[2021-04-29 17:00] LABS: ANA SCREEN NEGATIVE (Negative)
== END 2021-04-29 14:56 | disposition expired | DRG 720 ==
LOC: ED 20:00 → EDIP 21:38 → 4EST 22:49 → CCU 04-23 13:19
PROVIDERS: ADMIT Family Medicine; ATTEND Internal Medicine
PROC: 0BH17EZ Insertion of Endotracheal Airway into Trachea, Via Natural or Artificial Opening (ICD-10-PCS; principal; 2021-04-23)
PROC: 5A1955Z Respiratory Ventilation, Greater than 96 Consecutive Hours (ICD-10-PCS; 2021-04-23)
PROC: 02HV33Z Insertion of Infusion Device into Superior Vena Cava, Percutaneous Approach (ICD-10-PCS; 2021-04-23)
PROC: B548ZZA Ultrasonography of Superior Vena Cava, Guidance (ICD-10-PCS; 2021-04-23)
PROC: 02HV33Z Insertion of Infusion Device into Superior Vena Cava, Percutaneous Approach (ICD-10-PCS; 2021-04-25)
PROC: B548ZZA Ultrasonography of Superior Vena Cava, Guidance (ICD-10-PCS; 2021-04-25)
DX: A41.9 Sepsis, unspecified organism (principal); J96.01 Acute respiratory failure with hypoxia; K76.7 Hepatorenal syndrome; N17.0 Acute kidney failure with tubular necrosis; R65.21 Severe sepsis with septic shock; B02.9 Zoster without complications; D69.6 Thrombocytopenia, unspecified; E66.01 Morbid (severe) obesity due to excess calories; E83.51 Hypocalcemia; G93.41 Metabolic encephalopathy; E11.22 Type 2 diabetes mellitus with diabetic chronic kidney disease; E11.649 Type 2 diabetes mellitus with hypoglycemia without coma; Z68.41 Body mass index [BMI] 40.0-44.9, adult; B96.20 Unspecified Escherichia coli [E. coli] as the cause of diseases classified elsewhere; D64.9 Anemia, unspecified; Z88.8 Allergy status to other drugs, medicaments and biological substances; Z51.5 Encounter for palliative care; E78.5 Hyperlipidemia, unspecified; E87.0 Hyperosmolality and hypernatremia; E87.1 Hypo-osmolality and hyponatremia; E87.5 Hyperkalemia; E87.6 Hypokalemia; G47.33 Obstructive sleep apnea (adult) (pediatric); G89.29 Other chronic pain; I12.9 Hypertensive chronic kidney disease with stage 1 through stage 4 chronic kidney disease, or unspecified chronic kidney disease; K21.9 Gastro-esophageal reflux disease without esophagitis; K72.90 Hepatic failure, unspecified without coma; K74.69 Other cirrhosis of liver; K75.81 Nonalcoholic steatohepatitis (NASH); N18.2 Chronic kidney disease, stage 2 (mild); Z79.899 Other long term (current) drug therapy; Z87.11 Personal history of peptic ulcer disease; Z90.710 Acquired absence of both cervix and uterus; Z99.11 Dependence on respirator [ventilator] status; F32.9 Major depressive disorder, single episode, unspecified; M54.5 Low back pain; M54.6 Pain in thoracic spine
CPT/HCPCS: 36415; 36556; 36600; 70450; 71045; 74150; 76770; 76937; 80048; 80053; 80076; 80202; 80299; 80307; 80320; 81001; 82103; 82104; 82107; 82140; 82330; 82390; 82533; 82570; 82728; 82784; 82803; 82962; 83516; 83520; 83605; 83615; 83735; 84133; 84145; 84300; 84443; 84478; 84484; 85025; 85049; 85379; 85384; 85610; 85730; 86038; 86160; 86162; 86256; 86376; 86644; 86645; 86664; 86665; 86694; 86695; 86696; 86705; 86706; 86708; 86709; 86787; 86790; 86803; 87040; 87070; 87077; 87081; 87086; 87106; 87186; 87205; 87340; 87517; 93005; 93306; 93975; 94002; 94003; 96361; 96374; C1894; G0378; J0610; J0696; J1644; J2185; J2250; J2704; J3010; J3370; J3430; J3480; J7070; P9047; C1751; C9113; G0480; J0330; J1642; J1940; J2060; J2270; J7030; J7040; J7050